=== PATIENT | female | born 1990 | race Caucasian/White ===

== ENCOUNTER 2018-03-19 16:16 | Inpatient (IN) | payer OTHER ==
[~2018-03-19] VITALS: Ht 157.5 cm; Wt 99.8 kg
[2018-03-19 16:45] VITALS: BP 116/71
--- NOTE | 2018-03-19 16:50 | NUR ---
28 YO F BIB C/O NAUSEA, RUQ ABDOMINAL PAIN X 1WEEK. BM YESTERDAY WITH INTERMITTENT LOOSE STOOLS. REFERRED OVER TO ER FROM DR ESTHER CORONA'S OFFICE X 1HR AGO FOR REPORTED "GALL STONE". PT DENEIS NAUSEA AT THIS TIME. DENEIS FEVER/CHILLS. REPORTS THAT SHE HAS BEEN EATING/DRINKING WELL. AAOX4. GCS 15, CMS INTACT, RR EVEN AND UNLABORED, LUNGS CLEAR. ABD SOFT, TENDER TO PALPATION RUQ. BOWEL SOUNDS ACTIVE X 4 QUADRANTS. ER MD NOTIFIED. PT NEEDS MET, SAFETY PRECAUTIONS IN PLACE. WILL CONTINUE TO MONITOR.
--- NOTE | 2018-03-19 16:54 | NUR ---
PT AMBULATES TO BED 2 Addendum: 03/19/18 at 1655 by MEDHT BED 1
[2018-03-19] MEDS ORDERED: NACL 0.9% 1,000 ML IV SCH ×2 (16:56→19:14)
[2018-03-19] MEDS ORDERED: MORPHINE SULFATE 4 MG/ML SYR IVP ONE (17:00)
[2018-03-19] MEDS ORDERED: FAMOTIDINE 20 MG/2 ML VIAL IVP ONE (17:00)
[2018-03-19] MEDS ORDERED: KETOROLAC 30 MG/ML VIAL IVP ONE (17:00)
[2018-03-19] MEDS ORDERED: ONDANSETRON 4 MG/2 ML VIAL IVP ONE (17:00)
--- NOTE | 2018-03-19 17:10 | NUR ---
PHLEB AT BEDSIDE AT THIS TIME.
--- NOTE | 2018-03-19 17:17 | NUR ---
U/S AT BEDSIDE AT THIS TIME.
[2018-03-19 17:20] LABS: BASOPHILS % (AUTO) 0.3 % (0.0-2.0); EOSINOPHILS # (AUTO) 0.1 K/uL (0-0.4); EOSINOPHILS % (AUTO) 0.7 % (0.0-4.0); HEMATOCRIT 41.4 % (36-48); HEMOGLOBIN 13.8 g/dL (12.0-16.0); LYMPHOCYTES # (AUTO) 2.4 K/uL (2.5-16.5); LYMPHOCYTES % (AUTO) 26.6 % (20.5-51.1); MEAN CORPUSCULAR HEMOGLOBIN 30 pg (27-31); MEAN CORPUSCULAR HGB CONC 33 g/dL (33-37); MONOCYTES # (AUTO) 0.7 K/uL (0.8-1.0); MONOCYTES % (AUTO) 7.6 % (1.7-9.3); NEUTROPHILS # (AUTO) 5.8 K/uL (1.8-7.7); NEUTROPHILS % (AUTO) 64.8 % (42.2-75.2); PLATELET COUNT (AUTO) 235 K/uL (140-450); RED BLOOD CELL COUNT(AUTO) 4.55 MIL/uL (4.20-5.40); RED CELL DISTRIBUTION WIDTH 12.4 % (11.6-13.7)
[2018-03-19 17:22] LABS: APPEARANCE,URINE CLEAR (CLEAR); BLOOD, URINE NEGATIVE (NEGATIVE); COLOR,URINE YELLOW (YELLOW); LEUKOCYTE ESTERASE ,URINE NEGATIVE (NEGATIVE); NITRITE, URINE NEGATIVE (NEGATIVE); UGLUCOSE NEGATIVE (NEGATIVE)
[2018-03-19 17:23] LABS: BILIRUBIN,URINE NEGATIVE (NEGATIVE)
[2018-03-19 17:36] LABS: ALBUMIN 4.1 g/dL (3.4-5.0); ANION GAP 13.1 (8-16); CARBON DIOXIDE 27.5 mmol/L (21-32); CREATININE 0.7 mg/dL (0.6-1.3); POTASSIUM 3.6 mmol/L (3.5-5.1); TOTAL BILIRUBIN 0.6 mg/dL (0.0-1.0)
--- NOTE | 2018-03-19 18:15 | NUR ---
PT RESTING COMFORTABLY IN [facility] AT THIS TIME W/ VSS, SAFETY PRECAUTIONS IN PLACE. WILL CONTINUE TO MONITOR.
[2018-03-19] MEDS ORDERED: LEVOFLOXACIN 500 MG/D5W PREMIX 100 ML IV ONE (19:15)
[2018-03-19] MEDS ORDERED: HYDROcodone/APAP 5/325 MG 1 TAB TAB PO PRN ×2 (19:15→19:45)
[2018-03-19] MEDS ORDERED: HYDROmorphone 1 MG/ML AMP IVP PRN (19:15)
[2018-03-19] MEDS ORDERED: MORPHINE SULFATE 4 MG/ML SYR IV PRN (19:15)
[2018-03-19] MEDS ORDERED: MORPHINE SULFATE 2 MG/ML SYR IVP PRN (19:15)
--- NOTE | 2018-03-19 19:15 | NUR ---
REPORT GIVEN TO DOROTHEA ALAN RN
[2018-03-19] MEDS ORDERED: ACETAMINOPHEN 325 MG TAB PO PRN (19:45)
[2018-03-19] MEDS ORDERED: MORPHINE SULFATE 4 MG/ML SYR IVP PRN (19:45)
[2018-03-19] MEDS ORDERED: KETOROLAC 30 MG/ML VIAL IVP PRN (19:50)
[2018-03-19] MEDS ORDERED: LEVOFLOXACIN 500 MG/D5W PREMIX 100 ML IV SCH (20:00)
[2018-03-19] MEDS ORDERED: LEVOFLOXACIN 750 MG/D5W PREMIX 150 ML IV SCH (20:00)
--- NOTE | 2018-03-19 20:25 | NUR ---
REPORT GIVEN AND CARE TRANSFERED TO LUIS FELIPE RN WITH VSS. ESCORTED VIA WHEEL CHAIR. TRANSFER TO ROOM 125A.
--- NOTE | 2018-03-19 20:35 | NUR ---
PT ARRIVED ON UNIT VIA WHEELCHAIR ACCOMPANIED BY ER NURSE AND FAMILY MEMBER. PT ABLE TO AMBULATE FROM WHEELCHAIR TO BED. PT IN STABLE CONDITION. PT IS A/O X4. IV ACCESS IN R AC 20G, SALINE LOCKED. IV IS PATENT AND INTACT. PT SKIN IS INTACT. PT IS ON RA. VS ARE STABLE. MRSA SWAB COLLECTED. PT C/O PAIN 3 BUT SAYS PAIN IS MANAGEABLE AT THIS TIME. NPO SIGN POSTED ON DOOR. BED IS LOCKED, LOW POSITION AND SIDE RAILS UP X2. ORIENTED PT TO ROOM AND USE OF CALL LIGHT. BOARD UPDATED. WILL BEGIN PT ADMISSION PROCESS.
[2018-03-19] MEDS: NACL 0.9% 1,000 ML IV SCH (20:42)
[2018-03-19] MEDS ORDERED: ZOLPIDEM 5 MG TAB PO PRN (21:00)
[2018-03-19] MEDS: ONDANSETRON 4 MG/2 ML VIAL IV PRN (21:06)
--- NOTE | 2018-03-19 21:06 | NUR ---
PT C/O NAUSEA. ZOFRAN GIVEN. WILL CONTINUE TO MONITOR.
--- NOTE | 2018-03-19 22:10 | NUR ---
CONSENT OBTAINED FOR SCHEDULED SURGERY IN THE MORNING. PT IN STABLE CONDITION. NO SIGNS OF DISTRESS. WILL CONTINUE TO MONITOR.
--- NOTE | 2018-03-19 23:49 | NUR ---
PT VS WITHIN NORMAL LIMITS. PT C/O PAIN. MORPHINE GIVEN.
[2018-03-20] VITALS (8 sets, daily range): BP systolic 115–141; BP diastolic 71–84
--- NOTE | 2018-03-20 01:26 | NUR ---
PT ASLEEP IN BED. NO SIGNS OF DISTRESS. WILL CONTINUE TO MONITOR.
[2018-03-20] MEDS: ONDANSETRON 4 MG/2 ML VIAL IV PRN ×2 (01:40→13:44)
--- NOTE | 2018-03-20 01:40 | NUR ---
PT VOMITED SMALL AMOUNT. PT STILL FEELING NAUSEOUS. ZOFRAN GIVEN. WILL CONTINUE TO MONITOR PT.
--- NOTE | 2018-03-20 03:42 | NUR ---
PT ASLEEP IN BED. NO SIGNS OF DISTRESS. WILL CONTINUE TO MONITOR PT.
--- NOTE | 2018-03-20 05:32 | NUR ---
PT C/O NAUSEA. PT DOES NOT WISH TO HAVE ANY ANTIN[place]SEA MEDICINE AT THIS TIME. LAB HERE TO DRAW LABS. WILL CONTINUE TO MONITOR PT.
[2018-03-20] MEDS: NACL 0.9% 1,000 ML IV SCH ×2 (05:43→15:43)
[2018-03-20 06:14] LABS: BASOPHILS % (AUTO) 0.3 % (0.0-2.0); EOSINOPHILS % (AUTO) 0.2 % (0.0-4.0); HEMATOCRIT 37.8 % (36-48); HEMOGLOBIN 12.6 g/dL (12.0-16.0); LYMPHOCYTES # (AUTO) 1.6 K/uL (2.5-16.5); LYMPHOCYTES % (AUTO) 18.9 % (20.5-51.1); MEAN CORPUSCULAR HEMOGLOBIN 31 pg (27-31); MEAN CORPUSCULAR HGB CONC 33 g/dL (33-37); MEAN CORPUSCULAR VOLUME 91.5 fL (80-94); MONOCYTES # (AUTO) 0.6 K/uL (0.8-1.0); MONOCYTES % (AUTO) 7.2 % (1.7-9.3); NEUTROPHILS # (AUTO) 6.2 K/uL (1.8-7.7); NEUTROPHILS % (AUTO) 73.4 % (42.2-75.2); PLATELET COUNT (AUTO) 216 K/uL (140-450); RED BLOOD CELL COUNT(AUTO) 4.13 MIL/uL (4.20-5.40); RED CELL DISTRIBUTION WIDTH 12.6 % (11.6-13.7); WHITE BLOOD COUNT (AUTO) 8.5 K/uL (4.8-10.8)
[2018-03-20 07:05] LABS: ALBUMIN 3.4 g/dL (3.4-5.0); ANION GAP 13.3 (8-16); CARBON DIOXIDE 25.7 mmol/L (21-32); CREATININE 0.6 mg/dL (0.6-1.3); TOTAL BILIRUBIN 0.4 mg/dL (0.0-1.0)
--- NOTE | 2018-03-20 07:05 | NUR ---
ENDORSED PT TO DAY SHIFT NURSE FOR CONTINUITY OF CARE. PT IN STABLE CONDITION.
[2018-03-20] MEDS ORDERED: KETOROLAC 30 MG/ML VIAL IVP PRN (07:06)
--- NOTE | 2018-03-20 07:06 | NUR ---
REPORT RECEIVED FROM AUTOMATION MANAGER NURSE AT BEDSIDE FOR CONTINUITY OF CARE. PT IN STABLE CONDITION. PT IS A/O X4. IV ACCESS IN R AC 20G, SALINE LOCKED. IV IS PATENT AND INTACT. PT SKIN IS INTACT. PT IS ON RA. PT C/O PAIN 3 BUT SAYS PAIN IS MANAGEABLE AT THIS TIME. PATIENT NPO FOR PROCEDURE WITH DR. CORONA. INFORMED THAT PATIENT WILL BE TAKEN TO PROCEDURE AT 0730. CONSENT ALREADY SIGNED, OR CHECK LIST FINISHED BY AUTOMATION MANAGER NURSE. SAFETY PRECAUTION IN PLACE, BED IS LOCKED, LOW POSITION AND SIDE RAILS UP X2. BOARD UPDATED. WILL CONTINUE TO MONITOR PATIENT.
[2018-03-20] MEDS ORDERED: KETOROLAC 15 MG/ML VIAL IVP PRN (07:07)
--- NOTE | 2018-03-20 07:20 | NUR ---
PATIENT TAKEN TO OR FOR PROCEDURE BY 2 OR NURSES. PATIENT IN STABLE CONDITION.
[2018-03-20] MEDS ORDERED: PROPOFOL 200 MG/20 ML VIAL IV ONE (07:25)
[2018-03-20] MEDS ORDERED: SUCCINYLCHOLINE CHLORIDE 200 MG/10 ML VIAL IVP ONE (07:25)
[2018-03-20] MEDS ORDERED: SEVOFLURANE 250 ML BTL INH ONE (07:25)
[2018-03-20] MEDS ORDERED: ROCURONIUM 50 MG/5 ML VIAL IV ONE (07:25)
[2018-03-20] MEDS ORDERED: DEXAMETHASONE 4 MG/ML VIAL ONE (07:25)
[2018-03-20] MEDS ORDERED: ONDANSETRON 4 MG/2 ML VIAL ONE (07:25)
[2018-03-20] MEDS ORDERED: MIDAZOLAM 2 MG/2 ML VIAL ONE (07:32)
[2018-03-20] MEDS ORDERED: fentaNYL 0.05 MG/ML VIAL ONE (07:33)
[2018-03-20] MEDS ORDERED: MEPERIDINE 50 MG/ML SYR ONE (07:33)
[2018-03-20] MEDS ORDERED: BUPIVACAINE-MPF 0.5% 30 ML VIAL INJ ONE (07:39)
[2018-03-20] MEDS: LACTATED RINGERS 1,000 ML IV SCH ×2 (07:56→15:59)
[2018-03-20] MEDS ORDERED: HYDROmorphone 1 MG/ML AMP IVP PRN (08:00)
[2018-03-20] MEDS ORDERED: diphenhydrAMINE 50 MG/ML VIAL IVP PRN (08:00)
[2018-03-20] MEDS ORDERED: MEPERIDINE 25 MG/ML SYR IVP PRN (08:00)
[2018-03-20] MEDS ORDERED: ONDANSETRON 4 MG/2 ML VIAL IVP PRN (08:00)
--- NOTE | 2018-03-20 08:10 | NUR ---
PATIENT'S SISTER AILEEN IN ROOM WAITING FOR PATIENT. UPDATED HER ON PLAN OF CARE AND PATIENT'S CONDITION. SHE VERBALIZED UNDERSTANDING.
--- NOTE | 2018-03-20 08:52 | NUR ---
PATIENT HAS BEEN SCREENED AND CATEGORIZED HIGH NUTRITION RISK. PATIENT WILL BE SEEN WITHIN 1-2 DAYS OF ADMISSION. 03/20/18 03/21/[address]
[2018-03-20] MEDS ORDERED: ENOXAPARIN 40 MG/0.4 ML SYR SUBQ SCH (09:00)
--- NOTE | 2018-03-20 09:05 | NUR ---
ORDERED MEDICATION GIVEN. PATIENT TOLERATED THEM WELL. NO NAUSEA OR PAIN. WILL CONTINUE TO MONITOR PATIENT. Addendum: 03/20/18 at 1939 by Ferny Lizarraga RN WRONG PATIENT
[2018-03-20] MEDS: HYDROmorphone PFS 2 MG/ML SYR ONE ×3 (09:30→09:50)
[2018-03-20] MEDS ORDERED: ACET-1182 PO (10:01)
--- NOTE | 2018-03-20 10:15 | NUR ---
PATIENT BACK ON FLOOR. REPORT RECEIVED FROM OR NURSE. PATIENT IN STABLE CONDITION. PATIENT STATES PAIN IS TOLERABLE AT THIS TIME. NO NAUSEA NOTED AT THE MOMENT. VITAL SIGNS STABLE. WILL CONTINUE TO MONITOR PATIENT. Addendum: 03/20/18 at 1949 by Ferny Lizarraga RN PATIENT HAS 4 BANDAGES ON ABDOMEN FROM [facility] REED WITH DR. CORONA. NO DRAINAGE NOTED.
--- NOTE | 2018-03-20 11:17 | NUR ---
PATIENT C/O 7/10 PAIN AT INCISION SITE. PRN PAIN MED GIVEN. PATIENT TOLERATING IT WILL. WILL CONTINUE TO MONITOR PATIENT.
--- NOTE | 2018-03-20 12:24 | NUR ---
FAXED INITIAL REVIEW TO [facility] [phone] PHONE SHERIF [phone]
--- NOTE | 2018-03-20 12:55 | NUR ---
CLEAR LIQUID TRAY BROUGHT TO PATIENT. PATIENT TOLERATING IT WELL. NO SIGNS OF DISTRESS OR SOB NOTED ON ROOM AIR. WILL CONTINUE TO MONITOR PATIENT.
--- NOTE | 2018-03-20 13:44 | NUR ---
PATIENT VOMITED 50 ML OF LIQUID. ZOFRAN PRN GIVEN. PATIENT TOLERATING IT WELL. WILL CONTINUE TO MONITOR.
--- NOTE | 2018-03-20 15:45 | NUR ---
PATIENT C/O OF PAIN AT INCISION SITE, REQUESTED PAIN MEDICATIONS. INFORMED HER OF HER OPTIONS, PATIENT STATED THAT SHE RATHER TOLERATE HER PAIN AND GO HOME. RN VERBALIZED UNDERSTANDING AND INFORM PATIENT WHEN SHE IS TO BE READY TO BE DISCHARGED. PATIENT VERBALIZED UNDERSTANDING.
[2018-03-20] MEDS ORDERED: ACET-2869 PO (16:41)
--- NOTE | 2018-03-20 16:50 | NUR ---
DISCHARGE INSTRUCTIONS AND EDUCATION GIVEN TO PATIENT. PATIENT VERBALIZED UNDERSTANDING. IV REMOVED, IV CATHETER INTACT, MINIMAL BLOOD NOTED. PATIENT SIGNED ALL PAPERWORK. PATIENT WILL NOW GET CHANGED AND GET READY TO BE DISCHARGED.
--- NOTE | 2018-03-20 17:10 | NUR ---
PATIENT AMBULATED OFF FLOOR WITH SISTER AND RN AT SIDE ON STEADY GAIT. PATIENT TOOK ALL HER BELONGINGS WITH HER. PATIENT IN STABLE CONDITION.
== END 2018-03-20 17:10 | disposition home or self-care (01) | DRG 263 ==
LOC: MED 16:16 → MMU 19:48
PROVIDERS: ADMIT Hospitalist; ATTEND Hospitalist
PROC: 0FT44ZZ Resection of Gallbladder, Percutaneous Endoscopic Approach (ICD-10-PCS; principal; 2018-03-20 07:30)
DX: K80.10 Calculus of gallbladder with chronic cholecystitis without obstruction (principal); E66.01 Morbid (severe) obesity due to excess calories; K76.0 Fatty (change of) liver, not elsewhere classified; Z68.41 Body mass index [BMI] 40.0-44.9, adult; R16.0 Hepatomegaly, not elsewhere classified
CPT/HCPCS: 36415; 74150; 76705; 80053; 81003; 82150; 83690; 84703; 85025; 87081; 96361; 96374; 96375; 96376; 99285; J0330; J1100; J1170; J1885; J1956; J2175; J2250; J2270; J2405; J2704; J3010; J3490; J7030; Q0092

== ENCOUNTER 2018-10-23 06:27 | Day surgery (SDC) | payer OTHER ==
[~2018-10-23] VITALS: Ht 157.5 cm; Wt 99.8 kg
[~2018-10-23 06:27] MED LIST: ACET-1182 PO; HYDR-5122 PO
[2018-10-23 07:39] LABS: BASOPHILS % (AUTO) 0.4 % (0.0-2.0); EOSINOPHILS # (AUTO) 0.1 K/uL (0-0.4); EOSINOPHILS % (AUTO) 1.4 % (0.0-4.0); HEMATOCRIT 38.4 % (36-48); HEMOGLOBIN 12.8 g/dL (12.0-16.0); LYMPHOCYTES # (AUTO) 2.5 K/uL (2.5-16.5); LYMPHOCYTES % (AUTO) 26.9 % (20.5-51.1); MEAN CORPUSCULAR HEMOGLOBIN 30 pg (27-31); MEAN CORPUSCULAR HGB CONC 33 g/dL (33-37); MONOCYTES # (AUTO) 0.6 K/uL (0.8-1.0); MONOCYTES % (AUTO) 6.4 % (1.7-9.3); NEUTROPHILS # (AUTO) 5.9 K/uL (1.8-7.7); NEUTROPHILS % (AUTO) 64.9 % (42.2-75.2); PLATELET COUNT (AUTO) 248 K/uL (140-450); RED BLOOD CELL COUNT(AUTO) 4.22 MIL/uL (4.20-5.40); RED CELL DISTRIBUTION WIDTH 13.3 % (11.6-13.7); WHITE BLOOD COUNT (AUTO) 9.1 K/uL (4.8-10.8)
[2018-10-23 07:59] LABS: PROTHROMBIN TIME 8.9 secs (10.8-13.4)
[2018-10-23] MEDS ORDERED: LIDOCAINE 2% 1000 MG/50 ML VIAL INJ ONE (10:13)
[2018-10-23] MEDS ORDERED: fentaNYL 0.05 MG/ML VIAL ONE ×2 (10:36→11:28)
[2018-10-23] MEDS ORDERED: fentaNYL 0.05 MG/ML VIAL IVP ONE ×2 (11:15)
== END 2018-10-23 12:33 | disposition home or self-care (01) ==
LOC: MDS 06:27 → MMU 06:30 → MDS 12:33
PROVIDERS: ATTEND Internal Medicine Gastroenterology
DX: K74.0 Hepatic fibrosis (principal); K75.9 Inflammatory liver disease, unspecified; E66.01 Morbid (severe) obesity due to excess calories; F15.90 Other stimulant use, unspecified, uncomplicated; Z68.41 Body mass index [BMI] 40.0-44.9, adult; Z79.899 Other long term (current) drug therapy; Z90.49 Acquired absence of other specified parts of digestive tract; Z87.891 Personal history of nicotine dependence
CPT/HCPCS: 36415; 47000; 76942; 84702; 85025; 85610; 85730; 88307; 88313; J2001; J3010; Q0092